=== PATIENT | female | born 1985 ===

== ENCOUNTER 2019-05-08 08:37 | Outpatient (CLI) | payer OTHER | END 2019-05-08 09:45 | disposition home or self-care (01) | LOC: PRENATAL 08:37 | DX: O35.3XX0 Maternal care for (suspected) damage to fetus from viral disease in mother, not applicable or unspecified (principal); O34.219 Maternal care for unspecified type scar from previous cesarean delivery; O65.5 Obstructed labor due to abnormality of maternal pelvic organs; O28.3 Abnormal ultrasonic finding on antenatal screening of mother ==

== ENCOUNTER 2019-06-30 23:00 | Emergency (ER) | payer OTHER ==
[~2019-06-30] VITALS: Ht 170.2 cm; Wt 75.3 kg
== END 2019-07-01 04:40 | disposition home or self-care (01) ==
LOC: ER 23:00
DX: O98.512 Other viral diseases complicating pregnancy, second trimester (principal); O99.512 Diseases of the respiratory system complicating pregnancy, second trimester; Z34.82 Encounter for supervision of other normal pregnancy, second trimester

== ENCOUNTER 2019-09-18 10:45 | Inpatient (IN) | payer OTHER ==
[~2019-09-18] VITALS: Ht 170.2 cm; Wt 2.7 kg
[2019-09-18] MEDS ORDERED: PRENATABS RX T1 EACH PO (12:53)
[2019-09-22] MEDS ORDERED: PANTOPRAZOLE SO40 MG PO (09:28)
[2019-09-25] MEDS ORDERED: DOCUSATE SODIU100 MG PO (13:51)
[2019-09-25] MEDS ORDERED: IBUPROFEN800 MG PO (13:51)
[2019-09-25] MEDS ORDERED: Tylenol Extra Streng PO (13:51)
== END 2019-09-25 14:22 | disposition home or self-care (01) | DRG 785 ==
LOC: OB/GYN 09-22 06:07 → O/R 09-22 06:07 → LDR 09-22 07:00 → OB/GYN 09-22 10:45
PROVIDERS: ADMIT Obstetrics & Gynecology
PROC: 0UL70ZZ Occlusion of Bilateral Fallopian Tubes, Open Approach (ICD-10-PCS; 2019-09-22)
PROC: 4A1HXCZ Monitoring of Products of Conception, Cardiac Rate, External Approach (ICD-10-PCS; 2019-09-22)
PROC: 10D00Z1 Extraction of Products of Conception, Low, Open Approach (ICD-10-PCS; principal; 2019-09-22 07:00)
DX: O82 Encounter for cesarean delivery without indication (principal); Z3A.39 39 weeks gestation of pregnancy; Z37.0 Single live birth; Z30.2 Encounter for sterilization